=== PATIENT | female | born 2000 | race Caucasian/White ===

== ENCOUNTER 2022-06-29 03:37 | Emergency (ER) | payer SELFPAY ==
[~2022-06-29] VITALS: Ht 170.2 cm; Wt 55.0 kg
[2022-06-29 03:47] VITALS: BP 129/68
== END 2022-06-29 05:04 ==
LOC: ER 03:37
DX: R68.89 Other general symptoms and signs (principal); V49.49XA Driver injured in collision with other motor vehicles in traffic accident, initial encounter; Y93.89 Activity, other specified; Y92.89 Other specified places as the place of occurrence of the external cause; Y99.8 Other external cause status; J45.909 Unspecified asthma, uncomplicated; Z88.0 Allergy status to penicillin
CPT/HCPCS: 81025; 99283